=== PATIENT | male | born 1965 | race Caucasian/White ===

== ENCOUNTER 2016-11-23 16:32 | Emergency (ER) | payer SELFPAY ==
[~2016-11-23] VITALS: Ht 167.6 cm; Wt 82.5 kg
[~2016-11-23 16:32] MED LIST: ALBU18HF IH; AZIT250T94 PO; PRED20TA PO
[2016-11-23 16:34] VITALS: Ht 167.6 cm; Wt 82.5 kg
[2016-11-23] MEDS ORDERED: IBUPROFEN 600 MG TAB PO ONE (19:00)
[2016-11-23] MEDS ORDERED: LIDOCAINE 1% (MDV) 20 ML INJ SC ONE (19:00)
--- NOTE | 2016-11-23 19:19 | RADRPT ---
PROCEDURE: X-ray right elbow. CLINICAL INDICATION: Laceration to the right elbow. Reference marker is directed towards the dorsa l aspect of the olecranon. TECHNIQUE: 3 views of the right elbow. COMPARISON: None FINDINGS: Soft tissue disruption at the dorsal distal arm. The insertional triceps tendon appears completely versus near completely torn and retracted. Likely calcific tendinosis at the region of tear. Differ ential considerations include less likely retained radiopaque foreign material in the region of lace ration. Retraction of the tendon may measure up to 3 cm. Subcutaneous emphysema is seen in the dorsal distal arm. There is olecranon enthesophyte. The spin e also seen at the coronoid process and the ventral radial head. Otherwise, there is no evident acute fracture. No evident joint effusion. IMPRESSION: 1. Soft tissue disruption at the dorsal aspect of the distal arm with likely complete versus near-c omplete tear of the insertional triceps, with retraction. 2. MRI examination may be of further use. RPTAT: UU Physician Duc Date Time Electronically viewed and signed by Physician Duc on 11/23/2016 19:19 RS/
[2016-11-23] MEDS ORDERED: IBUP-1542 PO (19:38)
--- NOTE | 2016-11-23 19:42 | ERD ---
ER Documentation Chief Complaint Date/Time DATE: 11/23/16 TIME: 19:40 Chief Complaint Laceration to right arm HPI 51-year-old male complains of laceration on his right elbow after falling with a drill. He has a laceration in the posterior aspect of his right olecranon. He has no decreased range of motion weakness is able to extend his right arm freely. His tetanus is up-to-date. ROS All systems reviewed and are negative except as per history of present illness. Medications Home Meds Active Scripts Ibuprofen* (Motrin*) 600 Mg Tab, 600 MG PO Q6, #20 TAB Prov:SOPHIA LION MD 11/23/16 Albuterol Sulfate* (Ventolin HFA*) 18 Gm Hfa.aer.ad, 2 PUFF IH Q4H Y for WHEEZING AND RESP DISTRESS for 7 Days, EA Prov:SOPHIA LION MD 03/03/15 Prednisone* (Prednisone*) 20 Mg Tab, 40 MG PO DAILY for 4 Days, TAB start 03/04 Prov:SOPHIA LION MD 03/03/15 Azithromycin* (Zithromax*) 250 Mg Tablet, 250 MG PO .ZPACK DIRECTED, #6 TAB TAKE 500 MG (2 TABS) THE FIRST DAY THEN 250 MG (1 TAB) DAYS 2-5 Prov:SOPHIA LION MD 03/03/15 Allergies Allergies: Coded Allergies: No Known Allergy (Unverified , 03/03/15) PMhx/Soc Medical and Surgical Hx: pt denies Medical Hx, pt denies Surgical Hx History of Surgery: No Anesthesia Reaction: No Hx Neurological Disorder: No Hx Respiratory Disorders: No Hx Cardiac Disorders: No Hx Psychiatric Problems: No Hx Miscellaneous Medical Probl: No Hx Alcohol Use: No Hx Substance Use: No Hx Tobacco Use: No Smoking Status: Never smoker Physical Exam Vitals Vital Signs Date Time Temp Pulse Resp B/P Pulse Ox O2 Delivery O2 Flow Rate FiO2 11/23/16 16:34 98.3 107 20 162/95 98 Physical Exam Const: []Leit, [id number] Head: Atraumatic Eyes: Normal Conjunctiva ENT: Normal External Ears, Nose and Mouth. Neck: Full range of motion..~ No meningismus. Resp: Clear to auscultation bilaterally Cardio: Regular rate and rhythm, no murmurs Abd: Soft, non tender, non distended. Normal bowel sounds Skin: No petechiae or rashes Back: No midline or flank tenderness Ext: No cyanosis, or edema. There is approximately 1 cm laceration on the posterior aspect of his right olecranon. There is no bony deformities or deficits appreciated. There is no erythema or active bleeding or discharge. Neur: Awake and alert Psych: Normal Mood and Affect Results 24 hrs Current Medications Medications (Trade) Dose Ordered Sig/Lexy Route PRN Reason Start Time Stop Time Status Last Admin Dose Admin Ibuprofen (Motrin) 600 mg ONCE ONCE PO 11/23/16 19:00 11/23/16 19:01 DC 11/23/16 18:54 Lidocaine (Xylocaine 1% (Mdv) 20 ml) 20 ml ONCE ONCE SC 11/23/16 19:00 11/23/16 19:01 DC Procedures/MDM X-ray right elbow 3V Interpreted by me: Fat Pads: Normal Bones: No fracture Joints: No dislocation Foreign body: None. Impression-no fractures or dislocation right elbow x- ray. Note was made of possible defect and triceps extensor tendon. Procedure note-the right elbow was irrigated copiously with normal saline. 3 cc of lidocaine was used for local infiltration. 3 4-0 nylon sutures were used to approximate the wound and the patient tolerated procedure well. Wound was dressed and is placed in a right arm sling. Patient will be discharged home with orthopedic follow-up. Patient shows no evidence of tendon rupture. He is advised to follow-up with orthopedist for pain restricted range of motion of his right elbow. He should otherwise follow- up as directed for wound check and suture removal as directed. Departure Diagnosis: Primary Impression: Laceration Condition: Stable Patient Instructions: Laceration, All, Laceration, Tendon Referrals: CAN SNEED MD Additional Instructions: POSIBLEMENTE POQUITO ROMPIO EN TENDON. cheque 2 roque para cheque para infeccion. cheque 7 roque para saca los puntos / nazias SOPHIA LION MD Nov 23, 2016 19:42
== END 2016-11-23 19:55 | disposition home or self-care (01) ==
LOC: FTE 16:32
DX: S51.011A Laceration without foreign body of right elbow, initial encounter (principal); W29.8XXA Contact with other powered hand tools and household machinery, initial encounter; Y92.9 Unspecified place or not applicable

== ENCOUNTER 2016-12-16 14:32 | Inpatient (IN) | payer SELFPAY ==
[~2016-12-16] VITALS: Ht 170.2 cm; Wt 84.2 kg
[~2016-12-16 14:32] MED LIST changes: +IBUP-1542 PO
--- NOTE | 2016-12-16 15:39 | ERA ---
ER Documentation Chief Complaint Date/Time DATE: 12/16/16 TIME: 15:39 Chief Complaint right elbow lac 11/23, infected &fever, pmd cleaned out, worse, fingers numb HPI 51-year-old male status post primary closure of laceration to right elbow on , followed up in the clinic 3 days for worsening pain and swelling ago and found to have a wound infection. Currently an incision and drainage was performed but since then has been having increasing pain, redness, swelling of his arm with purulent wound drainage, recent chills. Has been on multiple antibiotics that he cannot name. Denies any other new injury. Denies headache , neck pain, chest pain, palpitations, shortness of breath, abdominal pain or nausea and vomiting. ROS All systems reviewed and are negative except as per history of present illness. Medications Home Meds Reported Medications Omeprazole* (Omeprazole*) 20 Mg Capsule.dr, 20 MG PO DAILY for as needed, #30 CAP 12/16/16 Acetaminophen* (Acetaminophen*) 500 MG Extra Strength Tablet, 500 MG PO Q4H Y for PAIN AND OR ELEVATED TEMP, TAB 12/16/16 Ciprofloxacin Hcl* (Ciprofloxacin Hcl*) 500 Mg Tablet, 500 MG PO BID, #14 TAB FOR 5 DAYS. START DATE 12/14/16 12/16/16 Discontinued Reported Medications Amoxicillin/Potassium Clav (Amox-Clav 875-125 mg Tablet) 875-125 mg Tab, 1 TAB PO BID, #20 TAB 12/16/16 Acetaminophen with Codeine (Acetaminophen-Cod #3 Tablet) 1 Each Tablet, 1 TAB PO Q6H, #20 TAB TAKE 1 OR 2 TABLETS Q4-6H 12/16/16 Discontinued Scripts Ibuprofen* (Motrin*) 600 Mg Tab, 600 MG PO Q6, #20 TAB Prov:SOPHIA LION MD 11/23/16 Albuterol Sulfate* (Ventolin HFA*) 18 Gm Hfa.aer.ad, 2 PUFF IH Q4H Y for WHEEZING AND RESP DISTRESS for 7 Days, EA Prov:SOPHIA LION MD 03/03/15 Prednisone* (Prednisone*) 20 Mg Tab, 40 MG PO DAILY for 4 Days, TAB start 03/04 Prov:SOPHIA LION MD 03/03/15 Azithromycin* (Zithromax*) 250 Mg Tablet, 250 MG PO .CasimiroPACK DIRECTED, #6 TAB TAKE 500 MG (2 TABS) THE FIRST DAY THEN 250 MG (1 TAB) DAYS 2-5 Prov:SOPHIA LION MD 03/03/15 Allergies Allergies: Coded Allergies: codeine (Unverified Allergy, Unknown, 12/16/16) PMhx/Soc Viewed in chart. As per HPI History of Surgery: No Anesthesia Reaction: No Hx Neurological Disorder: No Hx Respiratory Disorders: No Hx Cardiac Disorders: No Hx Psychiatric Problems: No Hx Miscellaneous Medical Probl: No Hx Alcohol Use: No Hx Substance Use: No Hx Tobacco Use: No FmHx Father: Diabetes Physical Exam Vitals Vital Signs Date Time Temp Pulse Resp B/P Pulse Ox O2 Delivery O2 Flow Rate FiO2 12/16/16 18:01 98.2 86 20 125/81 99 Room Air 12/16/16 14:39 98.1 93 18 145/92 97 Physical Exam Const: Alert, moderate distress. Head: Atraumatic Eyes: Normal Conjunctiva ENT: Normal External Ears, Nose and Mouth. Neck: Full range of motion. Tender. No lymphadenopathy. Resp: Clear to auscultation bilaterally Cardio: Regular rate and rhythm, no murmurs Abd: Soft, non tender, non distended. Normal bowel sounds Skin: No petechiae or rashes Back: No midline or flank tenderness Ext: Right upper extremity: Elbow: Splint removed. 3 cm wound with packing protruding from it and that was removed. Ongoing purulent drainage. Rubor, calor and induration running down to the wrist and up to the mid upper arm. No fluctuance or subcutaneous crepitus. Range of motion substantially decreased. No elbow or shoulder swelling or tenderness. Distal neurovascular intact. Neur: Awake and alert Psych: Normal Mood and Affect Result Diagram: 12/16/16 1540 12/16/16 1540 Results 24 hrs Laboratory Tests Test 12/16/16 15:40 12/16/16 16:50 White Blood Count 9.810^3/ul Red Blood Count 4.4510^6/ul Hemoglobin 13.7g/dl Hematocrit 40.3% Mean Corpuscular Volume 90.6fl Mean Corpuscular Hemoglobin 30.8pg Mean Corpuscular Hemoglobin Concent 34.0g/dl Red Cell Distribution Width 12.0% Platelet Count 37948^3/UL Mean Platelet Volume 9.3fl Neutrophils % 63.7% Lymphocytes % 23.6% Monocytes % 8.7% Eosinophils % 1.9% Basophils % 0.8% Nucleated Red Blood Cells % 0.0/100WBC Neutrophils # 6.210^3/ul Lymphocytes # 2.310^3/ul Monocytes # 0.910^3/ul Eosinophils # 0.210^3/ul Basophils # 0.110^3/ul Nucleated Red Blood Cells # 0.010^3/ul Prothrombin Time 12.6Sec Prothrombin Time Ratio 1.0 INR International Normalized Ratio 0.94 Activated Partial Thromboplast Time 30.6Sec Sodium Level 139mmol/L Potassium Level 3.9mmol/L Chloride Level 105mmol/L Carbon Dioxide Level 27mmol/L Anion Gap 11 Blood Urea Nitrogen 15mg/dl Creatinine 0.94mg/dl Glucose Level 103mg/dl Lactic Acid Level 1.9mmol/L Calcium Level 9.0mg/dl Total Bilirubin 0.1mg/dl Direct Bilirubin 0.00mg/dl Indirect Bilirubin 0.1mg/dl Aspartate Amino Transf (AST/SGOT) 29IU/L Alanine Aminotransferase (ALT/SGPT) 62IU/L Alkaline Phosphatase 79IU/L Total Protein 7.5g/dl Albumin 4.0g/dl Globulin 3.50g/dl Albumin/Globulin Ratio 1.14 Urine Color COLORLESS Urine Clarity CLEAR Urine pH 6.0 Urine Specific [place] 1.003 Urine Ketones NEGATIVEmg/dL Urine Nitrite NEGATIVEmg/dL Urine Bilirubin NEGATIVEmg/dL Urine Urobilinogen NEGATIVEmg/dL Urine Leukocyte Esterase NEGATIVELeu/ul Urine Hemoglobin NEGATIVEmg/dL Urine Glucose NEGATIVEmg/dL Urine Total Protein NEGATIVEmg/dl Current Medications Medications (Trade) Dose Ordered Sig/Lexy Route PRN Reason Start Time Stop Time Status Last Admin Dose Admin Sodium Chloride 2650 ml 2,650 ml BOLUS OVER 2 HOURS STAT IV* 12/16/16 15:41 12/16/16 15:45 DC 12/16/16 15:49 Vancomycin HCl 250 ml @ 125 mls/hr ONCE STAT IVPB 12/16/16 15:41 12/16/16 17:40 DC 12/16/16 16:19 Piperacillin Sod/ Tazobactam Sod (Zosyn 3.375gm/ 100 ml (Pmx)) 100 ml @ 100 mls/hr ONCE STAT IVPB 12/16/16 15:41 12/16/16 16:40 DC 12/16/16 15:52 Morphine Sulfate (morphine) 4 mg ONCE STAT IV 12/16/16 15:41 12/16/16 15:45 DC 12/16/16 15:52 Ondansetron HCl (Zofran Inj) 4 mg ONCE STAT IV 12/16/16 15:41 12/16/16 15:45 DC 12/16/16 15:52 Diphenhydramine HCl (Benadryl) 50 mg STK-MED ONCE .ROUTE 12/16/16 16:02 12/16/16 16:03 DC Diphenhydramine HCl (Benadryl) 25 mg ONCE ONCE IV 12/16/16 16:30 12/16/16 16:31 DC 12/16/16 16:18 Vancomycin HCl (Vanco Iv Per Pharmacy) VANCOMYCIN PER PHARMACY PER PROTOCOL XX 12/16/16 18:00 Ondansetron HCl (Zofran Inj) 4 mg BRIDGE ORDER PRN IV NAUSEA AND/OR VOMITING 12/16/16 18:30 12/17/16 18:29 Acetaminophen (Tylenol Tab) 650 mg ER BRIDGE PRN PO MILD PAIN/FEVER 12/16/16 18:30 12/17/16 18:29 EKG: Time: 16: 20. Sinus rhythm. Ventricular rate 88, normal GA and QRS intervals. No acute ST segment elevation or depression. No axis deviation or ectopy. 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 Patient with cellulitis right upper extremity. Although there may still be underlying abscess is unlikely considering recent incision and drainage with ongoing purulent drainage from the wound. No evidence of necrotizing fasciitis or ascending lymphangitis. Patient be admitted to [facility] for intravenous antibiotics, surgical consultation, further evaluation and management. Counseled patient regarding diagnosis, diagnostic results and plan for admission. CALLS/CONSULTS: Dr. Sheibani-Rad, Will consult PATIENT CARE TRANSITIONED: Dr. Valdez. Departure Diagnosis: Primary Impression: Cellulitis of right upper extremity CAN NICHOLS MD Dec 16, 2016 15:39
[2016-12-16] MEDS ORDERED: VANCOMYCIN 1 GM (PMX) 250 ML IVPB STA (15:41)
[2016-12-16] MEDS ORDERED: ONDANSETRON 4 MG INJ IV STA (15:41)
[2016-12-16] MEDS ORDERED: morphine 4 MG/ML VIAL IV STA (15:41)
[2016-12-16] MEDS ORDERED: SODIUM CHLORIDE 0.9% 1L BAG IV* STA (15:41)
[2016-12-16] MEDS ORDERED: PIPER-TAZO 3.375 GM IV (PMX) 100 ML IVPB STA (15:41)
[2016-12-16] MEDS ORDERED: DIPHENHYDRAMINE 50 MG INJ ONE (16:02)
[2016-12-16 16:03] LABS: BASOPHIL # 0.1 10^3/ul (0.0-0.1); BASOPHILS % 0.8 % (0.0-2.0); EOSINOPHILS # 0.2 10^3/ul (0.0-0.5); EOSINOPHILS % 1.9 % (0.0-7.0); HEMATOCRIT 40.3 % (42.0-52.0); HEMOGLOBIN 13.7 g/dl (14.0-18.0); LYMPHOCYTES # 2.3 10^3/ul (0.8-2.9); LYMPHOCYTES % 23.6 % (15.0-51.0); MEAN CORPUSCULAR HEMOGLOBIN 30.8 pg (29.0-33.0); MEAN CORPUSCULAR VOLUME 90.6 fl (82.0-101.0); MEAN PLATELET VOLUME 9.3 fl (7.4-10.4); MONOCYTE # 0.9 10^3/ul (0.3-0.9); MONOCYTES % 8.7 % (0.0-11.0); NEUTROPHIL # 6.2 10^3/ul (1.6-7.5); NEUTROPHILS % 63.7 % (39.0-77.0); PLATELET COUNT 255 10^3/UL (140-415); RED BLOOD COUNT 4.45 10^6/ul (4.70-6.10); WHITE BLOOD COUNT 9.8 10^3/ul (4.8-10.8)
[2016-12-16 16:12] LABS: INR 0.94; PROTIME 12.6 Sec (12.2-14.2)
[2016-12-16 16:13] LABS: PARTIAL THROMBOPLASTIN TIME 30.6 Sec (25.0-35.0)
[2016-12-16 16:15] LABS: ALBUMIN/GLOBULIN RATIO 1.14; BILIRUBIN,INDIRECT 0.1 mg/dl (0-1.1); BILIRUBIN,TOTAL 0.1 mg/dl (0.2-1.3); CREATININE 0.94 mg/dl (0.61-1.24); POTASSIUM 3.9 mmol/L (3.5-5.1); TOTAL PROTEIN 7.5 g/dl (6.1-8.1)
--- NOTE | 2016-12-16 16:23 | RADRPT ---
PROCEDURE: XR Chest. CLINICAL INDICATION: chest pain TECHNIQUE: Single frontal view of the chest was obtained COMPARISON: 03/03/2015 FINDINGS: The heart and mediastinum are within normal limits. The lungs are clear. There is no pleural effusion or pneumothorax. RPTAT: AA IMPRESSION: No acute disease. .Jesus Pretty MD, MD Date Time Electronically viewed and signed by .Jesus Pretty MD, on 12/16/2016 16:23 .S/
[2016-12-16] MEDS ORDERED: CIPR500T4 PO (16:29)
[2016-12-16] MEDS ORDERED: DIPHENHYDRAMINE 50 MG INJ IV ONE (16:30)
[2016-12-16] MEDS ORDERED: ACET1TAB40 PO (16:30)
--- NOTE | 2016-12-16 16:39 | RADRPT ---
PROCEDURE: X-RAY RIGHT ELBOW CLINICAL INDICATION: Cellulitis, osteomyelitis. TECHNIQUE: Two views of the right elbow are available for review COMPARISON: None available FINDINGS: There is marked soft tissue swelling especially medially. There is no evidence for bone destructive change. No evidence for fracture. There are soft tissue ossifications within the dorsal medial elbow which could be chronic dystrophic post-traumatic calcifications versus an avulsed enthesophyte if c linically appropriate. There is marked dorsal soft tissue swelling and some soft tissue air suggesti ng air producing infection. Mild arthrosis of the radiocapitellar joint consists primarily of osteop hyte formation. No evidence for joint effusion. IMPRESSION: 1. Marked medial and dorsal soft tissue swelling and there are dorsal ossifications which could be c hronic post-traumatic dystrophic calcifications or could be an avulsed enthesophyte if clinically ap propriate. 2. Dorsal soft tissue air suggesting air producing infection. 3. No plain film evidence of osteomyelitis is seen. RPTAT: XX .Pranay Anaya MD, MD Date Time Electronically viewed and signed by .Pranay Anaya MD, on 12/16/2016 16:39 .T/
[2016-12-16] MEDS ORDERED: ACET-141 PO (16:53)
[2016-12-16] MEDS ORDERED: AMOX1TAB10 PO (16:54)
[2016-12-16] MEDS ORDERED: OMEP20CA16 PO (17:03)
[2016-12-16 17:18] LABS: ADD UMIC NO; UR ASCORBIC ACID NEGATIVE (NEGATIVE); UR BILIRUBIN (Dip) NEGATIVE (NEGATIVE); UR BLOOD (Dip) NEGATIVE (NEGATIVE); UR CLARITY CLEAR (CLEAR); UR COLOR COLORLESS (YELLOW); UR GLUCOSE (Dip) NEGATIVE (NEGATIVE); UR KETONES (Dip) NEGATIVE (NEGATIVE); UR LEUKOCYTE ESTERASE (Dip) NEGATIVE Leu/ul (NEGATIVE); UR NITRITE (Dip) NEGATIVE (NEGATIVE); UR SPECIFIC GRAVITY (Dip) 1.003 (1.003-1.030); UR TOTAL PROTEIN (Dip) NEGATIVE (NEGATIVE); UR UROBILINOGEN (Dip) NEGATIVE (NEGATIVE)
[2016-12-16] MEDS ORDERED: VANCOMYCIN IV PER PHARMACY XX SCH (18:00)
[2016-12-16 18:01] VITALS: TEMP 98.2
[2016-12-16] MEDS ORDERED: ONDANSETRON 4 MG INJ IV PRN (18:30)
[2016-12-16] MEDS ORDERED: ACETAMINOPHEN 325 MG TAB PO PRN (18:30)
--- NOTE | 2016-12-16 18:33 | HP ---
Date/Time of Note Date/Time of Note DATE: 12/16/16 TIME: 18:22 Assessment/Plan VTE Prophylaxis VTE Prophylaxis Intervention: LMWH Assessment/Plan Chief Complaint/Hosp Course 51 yo male with infected wound on his elbow that has failed numerous outpatient abx SSTI: - Vanco/zosyn for now - Needs MRI to r/o underlying osteomyelitis and assess for abscess - Orthopedics consulted by ED Further management pending clinical course Problems: HPI/ROS Admit Date/Time Admit Date/Time Hx of Present Illness 51 yo male without significant PMH who presents for evaluation of arm infeciotn Patient fell about a month ago and suffered a laceration to his elbow. Became infection. Has undergone what sounds like surgical washouts to the area. It has become infected and he has undergone numerous abx courses. Had augmentin course. Has had injections of unknown antibiotcs. Prescribed cipro yesterday, only has taken one pill but came to ED today because feels he is getting worse and subjective fever. Describes pus drainage from the wound daily for past couple weeks Given vanco/zosyn in ED Seems comfortable now PMH/Family/Social Past Medical History Medical History: no pertinent history Social History Alcohol Use: none Smoking Status: Never smoker Drug Use: none Exam/Review of Systems Vital Signs Vitals Vital Signs Date Time Temp Pulse Resp B/P Pulse Ox O2 Delivery O2 Flow Rate FiO2 12/16/16 18:01 98.2 86 20 125/81 99 Room Air Exam Exam Well appearing NAD R elbow with a ~ 2 cm wound with sutures, forearm is clearly swollen and a bit tender and erythematous. No drainage from wound RRR CTAB No edema Abd sof artis nd Labs Result Diagram: 12/16/16 1540 12/16/16 1540 Medications Medications Current Medications Piperacillin Sod/ Tazobactam Sod 100 ml @ 200 mls/hr Q8 IVPB ; Start 12/16/16 at 22:00 Vancomycin HCl (Vancocin) 250 ml @ 125 mls/hr Q12H IVPB ; Start 12/17/16 at 02: 00 INDIO MARCUS MD Dec 16, 2016 18:33
[2016-12-16] MEDS ORDERED: OXYCODONE/ACETAMINOPHEN (5/325) TAB PO PRN (19:00)
[2016-12-16] MEDS ORDERED: IBUPROFEN 600 MG TAB PO PRN (19:00)
[2016-12-16] MEDS ORDERED: NACL 0.9% 3 ML SYG IV SCH (19:00)
[2016-12-16 20:10] VITALS: Ht 170.2 cm; Wt 84.2 kg
[2016-12-16 20:33] VITALS: BP 119/81; RESP 18
[2016-12-16] MEDS: PIPER-TAZO 3.375 GM IV (PMX) 100 ML IVPB SCH (21:36)
[2016-12-17] MEDS: VANCOMYCIN 1 GM in NS 250 ML IVPB SCH ×2 (02:01→13:10)
[2016-12-17 03:02] VITALS: BP 124/75; RESP 18
[2016-12-17] MEDS: morphine 4 MG/ML VIAL IV PRN ×3 (03:09→17:49)
[2016-12-17] MEDS: PIPER-TAZO 3.375 GM IV (PMX) 100 ML IVPB SCH ×3 (05:25→21:25)
[2016-12-17 06:24] LABS: BASOPHIL # 0.1 10^3/ul (0.0-0.1); BASOPHILS % 0.8 % (0.0-2.0); EOSINOPHILS # 0.3 10^3/ul (0.0-0.5); EOSINOPHILS % 2.9 % (0.0-7.0); HEMATOCRIT 36.6 % (42.0-52.0); HEMOGLOBIN 12.2 g/dl (14.0-18.0); LYMPHOCYTES % 33.1 % (15.0-51.0); MEAN CORPUSCULAR HEMOGLOBIN 29.9 pg (29.0-33.0); MEAN CORPUSCULAR HGB CONC 33.3 g/dl (32.0-37.0); MEAN CORPUSCULAR VOLUME 89.7 fl (82.0-101.0); MEAN PLATELET VOLUME 9.8 fl (7.4-10.4); MONOCYTE # 0.7 10^3/ul (0.3-0.9); MONOCYTES % 7.1 % (0.0-11.0); NEUTROPHILS % 54.7 % (39.0-77.0); PLATELET COUNT 267 10^3/UL (140-415); RED BLOOD COUNT 4.08 10^6/ul (4.70-6.10); WHITE BLOOD COUNT 9.1 10^3/ul (4.8-10.8)
[2016-12-17 06:54] LABS: ALBUMIN 3.6 g/dl (3.3-4.9); ALBUMIN/GLOBULIN RATIO 1.16; BILIRUBIN,INDIRECT 0.2 mg/dl (0-1.1); BILIRUBIN,TOTAL 0.2 mg/dl (0.2-1.3); CALCIUM 8.7 mg/dl (8.4-10.2); CREATININE 0.87 mg/dl (0.61-1.24); POTASSIUM 3.7 mmol/L (3.5-5.1); TOTAL PROTEIN 6.7 g/dl (6.1-8.1)
[2016-12-17 08:21] VITALS: BP 121/69; PULSE 79; RESP 18
--- NOTE | 2016-12-17 09:18 | CONS ---
DATE OF ADMISSION: 12/16/2016 DATE OF CONSULTATION: 12/17/2016 CHIEF COMPLAINT: Right elbow pain. HISTORY OF PRESENT ILLNESS: This is a 51-year-old male, who sustained an injury at work while falling off a ladder. He sustained a laceration. He has seen an occupational medicine clinic and had the laceration sutured. He denies any recent fevers or chills. He has no other complaints. PAST MEDICAL HISTORY: None. MEDICATION: None. PAST SURGICAL HISTORY: None. SOCIAL HISTORY: Denies tobacco, alcohol, or drug use. FAMILY HISTORY: None. ALLERGIES: NO KNOWN DRUG ALLERGIES. PHYSICAL EXAMINATION: GENERAL APPEARANCE: Patient is comfortable, in no acute distress. EXTREMITIES: Right elbow: There is a laceration with sutures intact. There is no drainage. There is no cellulitis. There is no fluctuance. There is no abscess. He has 5/5 function of his median, ulnar, radial nerves with a palpable radial artery pulse. LABORATORY: White blood cell count is 9.1. X-RAYS: Right elbow: No fractures or dislocations. IMPRESSION: A 51-year-old male with a right elbow laceration. PLAN: Patient can be discharged from orthopedic standpoint, and no surgery is indicated at this time. I recommend 7 days of p.o. Keflex. He is to follow up with occupational medicine clinic this week for suture removal. Dictated By: Yesenia Mora MD /abril/mu /Document#: [id number]
--- NOTE | 2016-12-17 13:38 | RADRPT ---
PROCEDURE: MRI OF THE RIGHT ELBOW. CLINICAL INDICATION: Right elbow pain, concern for abscess or osteomyelitis TECHNIQUE: Multiple MRI images were obtained utilizing multiple sequences and all three planes. Tequila ges were interpreted on high-resolution PACS system. COMPARISON: Radiographs of the right elbow November 22, 2016 and December 16, 2016 FINDINGS: Medial aspect: No evidence for flexor tendinosis or tear. The ulnar collateral ligament is intact. No osteochondral fracture of the medial elbow seen. The ulnar nerve appears normal. Lateral aspect: The common extensor tendon demonstrates moderate tendinosis and intrasubstance frayi ng without high-grade tear. The radial collateral and lateral collateral ligaments are intact. Biceps and Triceps Tendons: There is a full-thickness tear of the triceps tendon with approximately 3.3 of tendon retraction. There are small enthesophytes embedded within the torn and retracted tendo n at the sagittal 13). There is marked surrounding soft tissue swelling with foci of soft tissue gas within an ill-defined fluid collection that measures approximately 4.0 x 1.6 by 4.3 cm and extends to the olecranon bursa. Infection of this fluid collection is not excluded. Osseous structures: There is no evidence of underlying osteomyelitis at this time. There is no evide nce of acute fracture. There is mild osteoarthrosis of the elbow with marginal osteophyte formation. Other findings: There is physiologic elbow joint fluid. IMPRESSION: 1. Full-thickness triceps tendon tear with 3.3 cm of tendon retraction and small enthesophytes embed ded within the distal torn tendon fibers. 2. Significant associated ill-defined fluid collection with gas between the torn tendon fibers exten ding distally to the olecranon bursa, overall measuring approximately 4.0 x 1.6 x 4.3 cm. This is li singh represents infected hematoma and / or abscess. 3. No evidence of acute fracture or underlying osteomyelitis at this time. 4. Moderate proximal common extensor tendinosis with intrasubstance fraying at the humeral origin. RPTAT: UU .Trey Henson MD, Date Time Electronically viewed and signed by .Trey Henson MD, on 12/17/2016 13:38 .K/
[2016-12-17 14:21] VITALS: BP 109/67; RESP 18
--- NOTE | 2016-12-17 15:28 | PN ---
Date/Time of Note Date/Time of Note DATE: 12/17/16 TIME: 15:25 Assessment/Plan VTE Prophylaxis VTE Prophylaxis Intervention: LMWH Lines/Catheters IV Catheter Type (from Nrs): Peripheral IV Assessment/Plan Chief Complaint/Hosp Course 51 yo male with infected wound on his elbow that has failed numerous outpatient abx. Found to have triceps tendon treat with fluid collection concerning for abscess vs seroma SSTI: - Vanco/zosyn for now - IR to drain fluid collection tomorrow, send for C/S Triceps tendon tear: - Needs surgery. Discussed w Dr Reyes who prefers to see the patient as an outpatient Further management pending clinical course Problems: Subjective 24 Hr Interval Summary Free Text/Dictation Improving on abx MRI shows full triceps tendon tear as well as fluid collection concerning for abscess, no osteo Exam/Review of Systems Vital Signs Vitals Vital Signs Date Time Temp Pulse Resp B/P Pulse Ox O2 Delivery O2 Flow Rate FiO2 12/17/16 14:21 98.1 80 18 109/67 97 12/17/16 08:21 Room Air Intake and Output 12/16/16 12/16/16 12/17/16 15:00 23:00 07:00 Intake Total 100 ml 590 ml Balance 100 ml 590 ml Exam WEll appearing, no distress, nontoxic L arm with improved erythema, still a bit swollen, serous fluid draining from incision Results Result Diagram: 12/17/16 0510 12/17/16 0510 Results 24 hrs Laboratory Tests Test 12/16/16 15:40 12/16/16 16:50 12/16/16 18:40 12/16/16 22:33 White Blood Count 9.8 Red Blood Count 4.45 L Hemoglobin 13.7 L Hematocrit 40.3 L Mean Corpuscular Volume 90.6 Mean Corpuscular Hemoglobin 30.8 Mean Corpuscular Hemoglobin Concent 34.0 Red Cell Distribution Width 12.0 Platelet Count 255 Mean Platelet Volume 9.3 Neutrophils % 63.7 Lymphocytes % 23.6 Monocytes % 8.7 Eosinophils % 1.9 Basophils % 0.8 Nucleated Red Blood Cells % 0.0 Neutrophils # 6.2 Lymphocytes # 2.3 Monocytes # 0.9 Eosinophils # 0.2 Basophils # 0.1 Nucleated Red Blood Cells # 0.0 Prothrombin Time 12.6 Prothrombin Time Ratio 1.0 INR International Normalized Ratio 0.94 Activated Partial Thromboplast Time 30.6 Sodium Level 139 Potassium Level 3.9 Chloride Level 105 Carbon Dioxide Level 27 Anion Gap 11 Blood Urea Nitrogen 15 Creatinine 0.94 Glucose Level 103 Lactic Acid Level 1.9 1.0 1.1 Calcium Level 9.0 Total Bilirubin 0.1 L Direct Bilirubin 0.00 Indirect Bilirubin 0.1 Aspartate Amino Transf (AST/SGOT) 29 Alanine Aminotransferase (ALT/SGPT) 62 Alkaline Phosphatase 79 Total Protein 7.5 Albumin 4.0 Globulin 3.50 H Albumin/Globulin Ratio 1.14 Urine Color COLORLESS Urine Clarity CLEAR Urine pH 6.0 Urine Specific [place] 1.003 Urine Ketones NEGATIVE Urine Nitrite NEGATIVE Urine Bilirubin NEGATIVE Urine Urobilinogen NEGATIVE Urine Leukocyte Esterase NEGATIVE Urine Hemoglobin NEGATIVE Urine Glucose NEGATIVE Urine Total Protein NEGATIVE Test 12/17/16 05:10 White Blood Count 9.1 Red Blood Count 4.08 L Hemoglobin 12.2 L Hematocrit 36.6 L Mean Corpuscular Volume 89.7 Mean Corpuscular Hemoglobin 29.9 Mean Corpuscular Hemoglobin Concent 33.3 Red Cell Distribution Width 12.0 Platelet Count 267 Mean Platelet Volume 9.8 Neutrophils % 54.7 Lymphocytes % 33.1 Monocytes % 7.1 Eosinophils % 2.9 Basophils % 0.8 Nucleated Red Blood Cells % 0.0 Neutrophils # 5.0 Lymphocytes # 3.0 H Monocytes # 0.7 Eosinophils # 0.3 Basophils # 0.1 Nucleated Red Blood Cells # 0.0 Sodium Level 142 Potassium Level 3.7 Chloride Level 108 Carbon Dioxide Level 26 Anion Gap 12 Blood Urea Nitrogen 12 Creatinine 0.87 Glucose Level 113 Calcium Level 8.7 Total Bilirubin 0.2 Direct Bilirubin 0.00 Indirect Bilirubin 0.2 Aspartate Amino Transf (AST/SGOT) 24 Alanine Aminotransferase (ALT/SGPT) 57 Alkaline Phosphatase 57 Total Protein 6.7 Albumin 3.6 Globulin 3.10 Albumin/Globulin Ratio 1.16 Medications Medications Current Medications Piperacillin Sod/ Tazobactam Sod 100 ml @ 200 mls/hr Q8 IVPB Last administered on 12/17/16 13:06; Admin Dose 200 MLS/HR; Start 12/16/16 at 22:00 Vancomycin HCl (Vancocin) 250 ml @ 125 mls/hr Q12H IVPB Last administered on 13:10; Admin Dose 125 MLS/HR; Start 12/17/16 at 02:00 Ibuprofen (Motrin) 600 mg Q6H PRN PO PAIN LEVEL 1-3; Start 12/16/16 at 19:00 Morphine Sulfate (morphine) 4 mg Q4H PRN IV PAIN Last administered on t 09:50; Admin Dose 4 MG; Start 12/16/16 at 21:30 Influenza Virus Vaccine (Fluzone) 0.5 ml ONCE ONCE IM* ; Start 12/18/16 at 09:00 ; Stop 12/18/16 at 09:01 Miscellaneous Information (*Rx Drug Level Order Reminder*) VANCOMYCIN TROUGH AT 0100 ONCE ONCE XX ; Start 12/18/16 at 01:00; Stop 12/18/16 at 01:01 INDIO MARCUS MD Dec 17, 2016 15:28
--- NOTE | 2016-12-17 17:08 | CONS ---
DATE OF ADMISSION: 12/16/2016 DATE OF CONSULTATION: 12/17/2016 REASON FOR CONSULTATION: Antibiotic management. HISTORY OF PRESENT ILLNESS: The patient is a 51-year-old, male, who comes in with infected wound of the elbow and has failed outpatient antibiotics. Acutely, the patient fell about 1 month ago and suffered a laceration to his elbow, which became infected. He underwent surgical washout of the area and also has been on a number of antibiotics including Augmentin. He was prescribed Cipro yesterday, but came to the emergency room today because he was feeling worse and had subjective fever. He describes pus draining from the wound over the last few weeks. On admission, his white count is 9.8, H and H of 13.7 and 40.3, platelet count 255,000. BUN and creatinine 15/0.9. Patient was started on vancomycin and Zosyn. A wound culture was done, which is preliminary and urine culture is negative. Patient's elbow MRI was done, which shows full thickness triceps tendon tear with 3.3 cm of tendon retraction and small enthesophytes imbedded within the distal torn tendon fibers, ill-defined fluid collection with gas between the torn tendon fibers extending distally to the olecranon bursa, overall measuring 4 by 1.6 by 4.3 cm, probably infected hematoma and/or abscess. No evidence of acute fracture or osteomyelitis. The patient was seen by Dr. Velazco, who noted that he sustained injury at work while falling off a ladder. He made recommendations of 7 days of Keflex, to which I do not concur. The patient is currently on vancomycin. Invasive radiology is to drain the collection tomorrow. Patient needs surgery. Dr. Horton prefers to see the patient as an outpatient. PAST MEDICAL HISTORY: Operations as outlined. FAMILY HISTORY: Noncontributory. SOCIAL HISTORY: Does not smoke, drink, or abuse drugs. ALLERGIES: NONE TO PENICILLIN, SULFA, OR FOODS. MEDICATIONS: Per chart. REVIEW OF SYSTEMS: As per HPI. PHYSICAL EXAMINATION: GENERAL: Patient is a well-developed, well-nourished male, alert, responsive, in no acute distress. VITAL SIGNS: Stable. He is afebrile. SKIN: Without generalized rash. HEENT: Within normal limits. NECK: Supple. Lymph nodes nonpalpable. CHEST: Decreased breath sounds at the bases. HEART: Without murmur or gallop. ABDOMEN: Soft, nontender, without organosplenomegaly or masses. EXTREMITIES: Without cyanosis, clubbing, or edema. The right elbow has 2 cm wound with sutures, forearm is swollen and a bit tender and erythematous. Currently no drainage from the wound. RECTAL/GENITAL: Deferred. NEUROLOGICAL: No focal neurological abnormality. IMPRESSION AND PLAN: Patient will require ultimate surgery for tendon tear. He has infection. He should be treated with something that covers methicillin-resistant staph, so currently he is on vancomycin, he is also on Zosyn. Will await culture reports. I will dictate my findings to the hospitalists and to Dr. Mora. Dictated By: Anastacio Ceballos MD JD/abril/janice /Document#: [id number]
[2016-12-17 20:13] VITALS: BP 114/58; RESP 18
[2016-12-17 20:17] VITALS: BP 119/72; RESP 18
[2016-12-17] MEDS ORDERED: ZOLPIDEM 5 MG TAB PO PRN (21:00)
[2016-12-18] MEDS: VANCOMYCIN 1 GM in NS 250 ML IVPB SCH (02:14)
[2016-12-18 02:20] VITALS: BP 117/72; RESP 18
[2016-12-18] MEDS: PIPER-TAZO 3.375 GM IV (PMX) 100 ML IVPB SCH (05:41)
[2016-12-18 08:20] VITALS: BP 121/83; RESP 18
[2016-12-18] MEDS ORDERED: VANCOMYCIN 1.25 GM in SOD CHLORIDE 0.9% 250 ML IVPB SCH (09:00)
[2016-12-18] MEDS ORDERED: INFLUENZA VIRUS VACCINE 0.5 ML (DISPENSING) IM* ONE (09:00)
[2016-12-18] MEDS ORDERED: LIDOCAINE 1% (MPF) 5 ML VIAL ONE (09:14)
[2016-12-18] MEDS ORDERED: VANCOMYCIN 1 GM in NS 250 ML IVPB SCH (10:00)
--- NOTE | 2016-12-18 11:37 | PDOCDIS ---
Discharge Instructions CONDITION Patient Condition: Good HOME CARE INSTRUCTIONS: Diet Instructions: Regular ACTIVITY: Activity Restrictions: No Restrictions FOLLOW UP/APPOINTMENTS Follow-up Plan F/U WITH YOUR PCP IN 1-2 WEEKS LISETTE MURCIA Dec 18, 2016 11:37
[2016-12-18] MEDS ORDERED: CEPH-443 PO (12:08)
--- NOTE | 2016-12-18 12:23 | RADRPT ---
PROCEDURE: Ultrasound guided right elbow soft tissue fluid collection aspiration. CLINICAL INDICATION: Penetrating trauma to the right elbow 5 days ago. Continued pain and swelling . TECHNIQUE: Prior to the procedure, informed consent was obtained. Risks including bleeding and in fection were explained to the patient. The patient understood was willing to proceed. A procedural pause was performed. The patient's name, date of , and procedure to be performed were verifie d. Using local anesthetic, sterile technique and ultrasound guidance, a 20 -gauge needle was advanced i nto the small fluid collection in the right elbow soft tissues at the site of the incision. Approxim ately 4 ml of serosanguineous fluid was aspirated and sent for laboratory analysis. The patient tolerated the procedure well. COMPARISON: MRI of right elbow dated 12/17/2016. FINDINGS: Images demonstrate the needle within the right elbow fluid collection. Final images demonstrate the fluid collection to be virtually absent. IMPRESSION: 1. Satisfactory ultrasound-guided aspiration of the right elbow soft tissue fluid collection. RPTAT: QQ .Vahe Pacheco MD, MD Date Time Electronically viewed and signed by .Vahe Pacheco MD, on 12/18/2016 12:23 .R/
--- NOTE | 2016-12-18 14:31 | DS ---
Date/Time of Note Date/Time of Note DATE: 12/18/16 TIME: 14:23 Discharge Summary Admission/Discharge Info Admit Date/Time Dec 16, 2016 at 18:30 Discharge Date/Time Dec 18, 2016 at 13:45 Discharge Diagnosis 1. Infected hematoma status post drainage DC with Keflex Status post Vanco/Zosyn 2. Triceps tendon tear: Ortho consult appreciated, recommendation is for outpatient treatment Patient Condition: Good Hospital Course Patient is a 51 yo male without significant PMH who presents for evaluation of arm swelling and infection. Patient had MRI of the elbow that showed a fluid collection suspicious for infected hematoma. MRI also showed triceps tendon tear and patient was seen by orthopedics who recommended outpatient surgery. Patient did have drainage of the fluid collection in the elbow with IR, culture did show staph. Patient was on IV antibiotics during his hospitalization and was seen by ID. Patient had no evidence of sepsis or cellulitis on the day of discharge, had no acute complaints, vitals labs physical exam were stable and questions are answered. Home Meds Active Scripts Cephalexin* (Keflex*) 500 Mg Capsule, 500 MG PO BID for 5 Days, #10 CAP Prov:LISETTE MURCIA 12/18/16 Reported Medications Omeprazole* (Omeprazole*) 20 Mg Capsule.dr, 20 MG PO DAILY for as needed, #30 CAP 12/16/16 Acetaminophen* (Acetaminophen*) 500 MG Extra Strength Tablet, 500 MG PO Q4H Y for PAIN AND OR ELEVATED TEMP, TAB 12/16/16 Ciprofloxacin Hcl* (Ciprofloxacin Hcl*) 500 Mg Tablet, 500 MG PO BID, #14 TAB FOR 5 DAYS. START DATE 12/14/16 12/16/16 Discontinued Reported Medications Amoxicillin/Potassium Clav (Amox-Clav 875-125 mg Tablet) 875-125 mg Tab, 1 TAB PO BID, #20 TAB 12/16/16 Acetaminophen with Codeine (Acetaminophen-Cod #3 Tablet) 1 Each Tablet, 1 TAB PO Q6H, #20 TAB TAKE 1 OR 2 TABLETS Q4-6H 12/16/16 Discontinued Scripts Ibuprofen* (Motrin*) 600 Mg Tab, 600 MG PO Q6, #20 TAB Prov:SOPHIA LION MD 11/23/16 Albuterol Sulfate* (Ventolin HFA*) 18 Gm Hfa.aer.ad, 2 PUFF IH Q4H Y for WHEEZING AND RESP DISTRESS for 7 Days, EA Prov:SOPHIA LION MD 03/03/15 Prednisone* (Prednisone*) 20 Mg Tab, 40 MG PO DAILY for 4 Days, TAB start 03/04 Prov:SOPHIA LION MD 03/03/15 Azithromycin* (Zithromax*) 250 Mg Tablet, 250 MG PO .ZPACK DIRECTED, #6 TAB TAKE 500 MG (2 TABS) THE FIRST DAY THEN 250 MG (1 TAB) DAYS 2-5 Prov:SOPHIA LION MD 03/03/15 Follow-up Plan F/U WITH YOUR PCP IN 1-2 WEEKS Primary Care Provider Devika Solitario Time spent on discharge: > 30 minutes LISETTE MURCIA Dec 18, 2016 14:31
--- NOTE | 2016-12-18 14:44 | PN ---
DATE: 12/18/2016 SUBJECTIVE DATA: Patient is alert, feels good, denies pain, looks comfortable. No fevers. He is status post right elbow fluid aspiration where the culture grew staph species. Elbow MRI on admission revealed infected hematoma and/or abscess. No evidence of fracture or underlying osteomyelitis. PHYSICAL EXAMINATION: GENERAL: This is well nourished, well developed, middle-aged, man, who is alert, in no distress. HEENT: Head atraumatic, normocephalic. Sclerae anicteric. Buccal mucosa pink. NECK: Supple. CHEST: Chest rise symmetrical. Breath sounds clear. HEART: S1, S2. ABDOMEN: Soft, bowel sounds present. EXTREMITIES: Right elbow dressing intact. No swelling. ASSESSMENT: 1. Status post right elbow hematoma drainage with cultures preliminary growing staph species. Wound culture on admission was negative. 2. Resolving systemic inflammatory response syndrome. PLAN: The patient remains stable and doing much better after drainage of the fluid. As per Ortho recommendation he can be discharged home on Keflex. However, we recommend Bactrim for MRSA coverage. The patient should follow up with Ortho as an outpatient or with primary care provider. Dictated By: Luan Brown NP /abril/lucas /Document#: [id number]
== END 2016-12-18 13:45 | disposition home or self-care (01) | DRG 605 ==
LOC: E/R 14:32 → MS2 18:30
PROVIDERS: ADMIT Internal Medicine; ATTEND Internal Medicine
DX: S51.0 Open wound of elbow (principal); S46.311A Strain of muscle, fascia and tendon of triceps, right arm, initial encounter; W11.XXXS Fall on and from ladder, sequela
CPT/HCPCS: 36415; 71010; 73221; 80053; 80202; 81003; 83605; 85025; 85610; 85730; 87040; 87070; 87075; 87086; 90686; 93005; 96374; 96375; J1200; J2270; J2405; J2543; J3370; J7030; J7050

== ENCOUNTER 2017-08-17 09:18 | Emergency (ER) | END 2017-08-17 11:12 | disposition home or self-care (01) ==

== ENCOUNTER 2018-06-27 20:44 | Emergency (ER) | payer SELFPAY ==
[~2018-06-27] VITALS: Ht 162.6 cm; Wt 83.6 kg
[~2018-06-27 20:44] MED LIST changes: +ACET-141 PO; -ALBU18HF IH; -AZIT250T94 PO; +CEPH-443 PO; +CIPR500T4 PO; +CYCL10TA7 PO; +HYDR-4011 PO; -IBUP-1542 PO; +NAPR-985 PO; +OMEP20CA16 PO; -PRED20TA PO
[2018-06-27 20:48] VITALS: BP 153/94; PULSE 110; RESP 16; Ht 162.6 cm; Wt 83.6 kg
== END 2018-06-28 01:30 | disposition left against medical advice (07) ==
LOC: FTE 20:44
DX: Z53.21 Procedure and treatment not carried out due to patient leaving prior to being seen by health care provider (principal)